=== PATIENT | female | born 2000 | race Caucasian/White ===

== ENCOUNTER 2020-01-06 09:36 | Emergency (ER) | payer MEDICAID ==
[~2020-01-06] VITALS: Ht 160 cm; Wt 127.0 kg
[2020-01-06 09:50] VITALS: Ht 160 cm; Wt 127.0 kg
[2020-01-06 11:42] VITALS: BP 159/96
== END 2020-01-06 11:42 | disposition home or self-care (01) ==
LOC: ED 09:36
DX: H60.93 Unspecified otitis externa, bilateral (principal); H72.92 Unspecified perforation of tympanic membrane, left ear; I10 Essential (primary) hypertension